=== PATIENT | female | born 1980 | race American Indian/Alaskan Native ===

== ENCOUNTER 2017-12-15 05:08 | Emergency (ER) | payer MEDICARE, MEDICAID ==
[2017-12-15 05:26] VITALS: O2SAT 100
[2017-12-15] MEDS ORDERED: Aluminum Hydroxide/Magnesium Hydroxide Susp (30 mL) PO STA (05:43)
--- NOTE | 2017-12-15 05:45 | C.PDOC ---
History Of Present Illness 37 y/o female with lupus c/o left side neck pain radiating to left ear that started last night with sore throat. pt took 500 mg tylenol wit no relief at 2 am. no fever. Time Seen by Provider: 12/15/17 05:30 Chief Complaint (Nursing): ENT Problem History Per: Patient History/Exam Limitations: None Onset/Duration Of Symptoms: Days (1) Current Symptoms Are (Timing): Still Present Quality (Ear): denies: Pain W/Touch, Discharge, Foreign Body Quality (Mouth/Throat): Tenderness Past Medical History Reviewed: Historical Data, Nursing Documentation, Vital Signs Vital Signs: Last Vital Signs Temp 97.8 F 12/15/17 05:17 Pulse 74 12/15/17 05:17 Resp 20 12/15/17 05:17 BP 143/91 H 12/15/17 05:17 Pulse Ox 100 12/15/17 05:48 - Medical History Other PMH: Lupus Family History: States: Unknown Family Hx - Social History Hx Alcohol Use: Yes Hx Substance Use: No - Immunization History Hx Tetanus Toxoid Vaccination: No Hx Influenza Vaccination: No Hx Pneumococcal Vaccination: No Review Of Systems Constitutional: Negative for: Fever, Chills ENT: Positive for: Ear Pain, Throat Pain. Negative for: Throat Swelling Cardiovascular: Negative for: Chest Pain Respiratory: Negative for: Cough, Shortness of Breath Physical Exam - Physical Exam Appears: Non-toxic, No Acute Distress Skin: Warm, Dry Head: Atraumatic, Normacephalic Eye(s): bilateral: Normal Inspection Ear(s): Left: TM Erythema, Right: Normal Nose: No Discharge Oral Mucosa: Moist Tongue: Normal Appearing Lips: Normal Appearing Throat: No Erythema, No Exudate Neck: Supple Neurological/Psych: Oriented x3, Normal Speech, Normal Cognition ED Course And Treatment O2 Sat by Pulse Oximetry: 100 Medical Decision Making Medical Decision Making: left neck, throat and ear pain with erythematous left tm; tx for otitis, d/c with amoxi Disposition Counseled Patient/Family Regarding: Diagnosis, Need For Followup, Rx Given - Disposition Disposition: HOME/ ROUTINE Disposition Time: 06:00 Condition: GOOD Prescriptions: Amoxicillin [Amoxil 500 mg Cap] 500 mg PO BID #20 cap Instructions: Ear Infections (Otitis Media) (DC) Forms: [employer] (Mexican), General Discharge Instructions - Clinical Impression Clinical Impression: Otitis media of left ear
[2017-12-15 06:11] VITALS: BP 137/95; PULSE 73; RESP 16; TEMP 98
[2017-12-15] MEDS ORDERED: Aluminum Hydroxide/Magnesium Hydroxide Susp (30 mL) ONE (06:26)
== END 2017-12-15 06:44 | disposition home or self-care (01) ==
LOC: C.ER 05:08
DX: H66.92 Otitis media, unspecified, left ear (principal)